=== PATIENT | male | born 1940 | race Caucasian/White ===

== ENCOUNTER 2018-06-18 05:09 | Emergency (ER) | payer OTHER ==
[~2018-06-18] VITALS: Ht 182.9 cm; Wt 90.0 kg
[~2018-06-18 05:09] MED LIST: ALBUTEROL SUL0.083 % IN; ATROVENT H17 MCG/ACT IN; ATROVENT I0.5 MG/VIA IN; CARDURA8 MG PO; CIPRO XR500 M2 PO; CIPROFLOXACN500 MG PO; CLARITIN10 MG PO; COLACE100 MG PO; DILAUDID 2MG2 MG/TA1 PO; DULCOLAX5 MG PO; HALDOL DECA100 MG/ML IJ; LEVOTHYROXIN50 MC1 PO; MOTRIN800 MG/TAB PO; PRILOSEC20 MG PO; VALPROIC ACD250 M1 PO; ZOCOR20 M1 PO
[2018-06-18] MEDS ORDERED: CARDURA4 MG PO (05:23)
[2018-06-18] MEDS ORDERED: LEVOTHYROXIN75 MC1 PO (05:24)
[2018-06-18] MEDS ORDERED: SIMVASTATIN20 MG PO (05:26)
[2018-06-18] MEDS ORDERED: GEODON80 MG PO (05:28)
[2018-06-18] MEDS ORDERED: HYDROCORTISONE30 G1 TOP (05:30)
[2018-06-18] MEDS ORDERED: CIPROFLOXACN500 MG PO (05:32)
[2018-06-18] MEDS ORDERED: BENADRYL 550 MG/1 M2 IM (05:33)
[2018-06-18] MEDS ORDERED: VENTOLIN HFA IN (05:34)
[2018-06-18] MEDS ORDERED: FLEET ENEMA RE (05:34)
[2018-06-18] MEDS ORDERED: PROVENTIL0.083 % IN (05:35)
[2018-06-18] MEDS ORDERED: MELOXICAM15 MG PO (05:35)
[2018-06-18] MEDS ORDERED: ATIVAN2 MG/ML IM (05:38)
[2018-06-18] MEDS ORDERED: HALDOL INJ5 MG/ML IM (05:39)
[2018-06-18] MEDS ORDERED: VICODIN ES1 TA1 PO (05:40)
[2018-06-18 05:42] VITALS: BP 152/64
== END 2018-06-18 06:00 | disposition designated cancer center or children's hospital (05) | DRG 696 ==
LOC: ED 05:09
PROC: 0T9B70Z Drainage of Bladder with Drainage Device, Via Natural or Artificial Opening (ICD-10-PCS; principal; 2018-06-18)
DX: R33.9 Retention of urine, unspecified (principal)